=== PATIENT | female | born 1970 | race Caucasian/White ===

== ENCOUNTER → 2022-07-19 | Day surgery (SDC) | payer BC, OTHER ==
[2022-07-15 09:37] VITALS: BMI 33.6
[~2022-07-19] MED LIST: LACTATED RINGERS 1,000 ML IV SCH; PROPOFOL 10 MG/ML 20 ML VIAL IV ONE
[2022-07-19 10:39] VITALS: RESP 16; TEMP 98
--- NOTE | 2022-07-19 11:09 | P.GSHP ---
History of Present Illness H&P Date: 07/19/22 Chief Complaint: Abnormal stool test 51-year-old female here today for colonoscopy. 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 She does not see any rectal bleeding or melena. No bowel complaints. No family history of colon cancer. No previous colonoscopy. Past Medical History Past Medical History: No Reported History History of Any Multi-Drug Resistant Organisms: None Reported Past Surgical History: Cholecystectomy, Hernia Repair, Orthopedic Surgery Additional Past Surgical History / Comment(s): ACL repair left knee, inguinal and umbilical hernia repair Past Anesthesia/Blood Transfusion Reactions: Previous Problems w/ Anesthesia Additional Past Anesthesia/Blood Transfusion Reaction / Comment(s): dizzy for 6 months after hernia surgery (4-5 yrs ago) Smoking Status: Former smoker - Past Family History Father Family Medical History: Cancer Additional Family Medical History / Comment(s): AML leukemia Medications and Allergies Home Medications Medication Instructions Recorded Confirmed Type Progesterone Cream 1 applicate TOPICAL DAILY 07/15/22 07/19/22 History Protein Powder 1 applicate PO DAILY 07/15/22 07/19/22 History Allergies Allergy/AdvReac Type Severity Reaction Status Date / Time No Known Allergies Allergy Verified 07/19/22 10:40 Surgical - Exam Vital Signs Temp Pulse Resp BP Pulse Ox 98 F 81 16 154/81 96 07/19/22 10:33 07/19/22 10:33 07/19/22 10:33 07/19/22 10:33 07/19/22 10:33 Physical exam: General: Well-developed, well-nourished HEENT: Normocephalic, sclerae nonicteric Abdomen: Nontender, nondistended Extremities: No edema Neuro: Alert and oriented Assessment and Plan (1) Abnormal stool test Narrative/Plan: Will proceed with colonoscopy Current Visit: Yes Status: Acute Code(s): R19.5 - OTHER FECAL ABNORMALITIES SNOMED Code(s): 798875129
--- NOTE | 2022-07-19 11:21 | P.PCN ---
Date of Procedure: 07/19/22 Procedure(s) Performed: PREOPERATIVE DIAGNOSIS: Abnormal stool study POSTOPERATIVE DIAGNOSIS: Ascending colon polyp, diverticulosis PROCEDURE: Colonoscopy with biopsy ANESTHESIA: MAC SURGEON: Chente Sheffield M.D. SPECIMENS: Colon polyp ENDOSCOPIC PROCEDURE: The patient was placed on the endoscopy table in the left decubitus position. The Olympus colonoscope was inserted into the anus and passed under direct visualization to the base of the cecum. The appendiceal orifice was visualized. From that point the scope was slowly withdrawn inspecting all surfaces carefully. There were no neoplastic inflammatory or polypoid lesions throughout the cecum. In the ascending colon a small polyp was seen and removed using the cold biopsy forceps. The remainder of the ascending transverse descending sigmoid and rectum appeared normal. There was mild left- sided diverticulosis. Digital rectal examination was normal. The patient was taken to the recovery room in stable condition per anesthesia guidelines. RECOMMENDATIONS: Await biopsy results. Will contact patient with those results to determine timing of the next colonoscopy.
[2022-07-19 11:56] VITALS: BP 128/74; PULSE 65
== END ==
LOC: ORWHC2ENDO 09:49
PROVIDERS: ATTEND Surgery
DX: Z12.11 Encounter for screening for malignant neoplasm of colon (principal); D12.2 Benign neoplasm of ascending colon; K57.30 Diverticulosis of large intestine without perforation or abscess without bleeding; R19.5 Other fecal abnormalities; Z87.891 Personal history of nicotine dependence
CPT/HCPCS: 88305; 45380; J2704

== ENCOUNTER → 2023-04-10 | Outpatient (CLI) | payer BC ==
--- NOTE | 2023-04-11 17:16 | MM ---
Reason for Exam: Screening (asymptomatic). Last screening mammogram was performed 12 month(s) ago. Patient History: Menarche at age 13. First Full-Term at age 26. Postmenopausal. Currently using Progesterone, starting at age 51. Risk Values: Comfort 5 year model risk: 1.1%. NCI Lifetime model risk: 8.6%. Prior Study Comparison: 12/03/2020 Bilateral Screening Mammogram, [facility]. 03/31/2022 Bilateral Screening Mammogram, [facility]. Tissue Density: There are scattered fibroglandular densities. Findings: Analyzed By CAD. Few scattered benign necrosis calcifications are redemonstrated in the anterior aspect of both breasts. Unchanged asymmetric density subareolar left cc view. Chronic nodularity posterior upper outer quadrant right breast. There is no suspicious group of microcalcifications or new suspicious mass in either breast. Overall Assessment: Benign, BI-RAD 2 Management: Screening Mammogram of both breasts in 1 year. . Patient should continue monthly self-breast exams. A clinical breast exam by your physician is recommended on an annual basis. This exam should not preclude additional follow-up of suspicious palpable abnormalities. Note on Comfort scores and lifetime risk: 1. A Comfort score greater than 3% is considered moderate risk. If this is the case, consider specialist referral to assess eligibility for a risk reducing agent. 2. If overall lifetime risk for the development of breast cancer is 20% or higher, the patient may qualify for future screening with alternating mammogram and breast MRI. Electronically signed and approved by: Tucker Thompson M.D. Radiologist
== END | disposition home or self-care (01) ==
LOC: RADMAMWWP 13:46
PROVIDERS: ATTEND Obstetrics & Gynecology
DX: Z12.31 Encounter for screening mammogram for malignant neoplasm of breast (principal); Z78.0 Asymptomatic menopausal state
CPT/HCPCS: 77063; 77067

== ENCOUNTER → 2024-05-03 | Outpatient (CLI) | payer BC ==
--- NOTE | 2024-05-07 13:25 | MM ---
Reason for Exam: Screening (asymptomatic). Last mammogram was performed 1 year(s) and 1 month(s) ago. Patient History: Menarche at age 13. First Full-Term at age 26. Postmenopausal. Estrogen for 1 month. Currently using Progesterone, starting at age 51. Risk Values: Comfort 5 year model risk: 1.2%. NCI Lifetime model risk: 8.5%. Prior Study Comparison: 12/03/2020 Bilateral Screening Mammogram, [facility]. 03/31/2022 Bilateral Screening Mammogram, [facility]. 04/10/2023 Bilateral MG 3D screening mammo w/cad, [facility]. Tissue Density: The breasts are heterogeneously dense, which may obscure small masses. Findings: Analyzed By CAD. Right breast: There is no suspicious group of microcalcifications or new suspicious mass. Left breast: There is no suspicious group of microcalcifications or new suspicious mass. Overall Assessment: Negative, BI-RAD 1 Management: Screening Mammogram of both breasts in [address] [facility] will attempt to contact patient to return for supplemental views and ultrasound if indicated. Patient should continue monthly self-breast exams. A clinical breast exam by your physician is recommended on an annual basis. This exam should not preclude additional follow-up of suspicious palpable abnormalities. Note on Comfort scores and lifetime risk: 1. A Comfort score greater than 3% is considered moderate risk. If this is the case, consider specialist referral to assess eligibility for a risk reducing agent. 2. If overall lifetime risk for the development of breast cancer is 20% or higher, the patient may qualify for future screening with alternating mammogram and breast MRI. Electronically signed and approved by: Shimon Esparza DO
== END | disposition home or self-care (01) ==
LOC: RADMAMWWP 14:54
PROVIDERS: ATTEND Obstetrics & Gynecology
DX: Z12.31 Encounter for screening mammogram for malignant neoplasm of breast (principal); Z78.0 Asymptomatic menopausal state
CPT/HCPCS: 77063; 77067